=== PATIENT | female | born 1960 | race African-American/Black ===

== ENCOUNTER 2018-12-07 19:10 | Emergency (ER) | payer OTHER ==
[~2018-12-07] VITALS: Ht 167.6 cm; Wt 77.1 kg
[~2018-12-07 19:10] MED LIST: HYDROCODONE-HOMA5 ML PO; IBUPROFEN 800800 M1 PO; NAPROSYN500 MG PO; ZPAK PO
[2018-12-07 19:49] LABS: ABSOLUTE NEUTROPHILS 3.5 thou/uL (1.4-8.2); BASOPHILS 1.5 % (0.0-2.0); EOSINOPHILS 3.6 % (0.0-3.0); HEMATOCRIT 44.8 % (37.0-47.0); HEMOGLOBIN 14.7 gm/dL (12.0-15.0); LYMPHOCYTES 48.4 % (24.0-44.0); MCH 26.4 pg (26.0-34.0); MCHC 32.9 g/dL (28.0-37.0); MCV 80.4 fL (80.0-100.0); MONOCYTES 4.2 % (1.0-8.0); PLATELET COUNT 262 thou/uL (150-400); POLYS 42.3 % (36.0-66.0); RBC 5.57 mil/uL (4.20-5.00); RDW 14.7 % (10.5-14.5); WBC 8.3 thou/uL (4.0-11.0)
[2018-12-07 19:50] LABS: ANION GAP 9 mmol/L (7-16); BUN 14 mg/dL (7-18); CHLORIDE 105 mmol/L (98-107); CO2 28 mmol/L (21-32); GLUCOSE 107 mg/dL (74-106); POTASSIUM 4.3 mmol/L (3.5-5.1); SODIUM 142 mmol/L (136-145)
[2018-12-07 20:00] LABS: ALBUMIN 3.7 g/dL (3.4-5.0); SGOT 40 U/L (15-37); SGPT 33 U/L (30-65); TOTAL BILIRUBIN 0.3 mg/dL (<0.1-1.0); TOTAL PROTEIN 8.2 g/dL (6.4-8.2); TROPONIN-I <0.06 ng/mL (<0.06)
[2018-12-07 20:02] LABS: D-DIMER 0.32 ug/mLFEU (0.19-0.50); PROTIME 9.9 Seconds (9.3-11.4)
[2018-12-07 21:17] VITALS: BP 108/68
--- NOTE | 2018-12-08 10:49 | EKG ---
[address] [address] [place] [address] ELECTROCARDIOGRAM REPORT Name: CAROL YING [facility] [id number] Admission: 12/07/18 Attend Phys: Discharge: 12/07/18 Date of : 58 Report #: [id number] THIS REPORT FOR: //name// [facility] ED Test Date: 2018-12-07 Test Time: 19:28:52 Pat Name: CAROL YING Department: Room: Gender: F Phlebotomy Services Technician: LILIANE : 1960 Requested By: Corinne Cervantes Order Number: [id number] MD: Misael Hanks Measurements Intervals [place] Rate: 93 P: 76 AL: 152 QRS: 18 QRSD: 88 T: 54 QT: 345 QTc: 430 Interpretive Statements Sinus rhythm Possible septal infarct, age indeterminate Compared to ECG 07/31/2018 12:11:01 No significant change was found Electronically Signed On 12-08-2018 10:48:55 SQL BI DEVELOPER by Misael Hanks [email or web address] <ELECTRONICALLY SIGNED> By: Misael Hanks MD, [facility] 12/08/18 1048 1927 27 Misael Hanks MD, FACC /EPI
== END 2018-12-07 21:20 | disposition home or self-care (01) ==
LOC: ER 19:10
PROVIDERS: Physician Assistant
DX: R00.0 Tachycardia, unspecified (principal)

== ENCOUNTER 2019-03-05 22:31 | Emergency (ER) | payer OTHER ==
[~2019-03-05] VITALS: Ht 167.6 cm; Wt 86.2 kg
[2019-03-06] MEDS ORDERED: PEPCID20 MG PO (00:31)
[2019-03-06] MEDS ORDERED: PREDNISONE 20 M20 MG PO (00:31)
[2019-03-06 00:44] VITALS: BP 131/68
== END 2019-03-06 00:45 | disposition home or self-care (01) ==
LOC: ER 22:31
DX: L50.9 Urticaria, unspecified (principal)

== ENCOUNTER 2019-03-24 00:33 | Emergency (ER) | payer OTHER ==
[~2019-03-24] VITALS: Ht 167.6 cm; Wt 84.8 kg
[~2019-03-24 00:33] MED LIST changes: +PEPCID20 MG PO; +PREDNISONE 20 M20 MG PO
[2019-03-24] MEDS ORDERED: EPIPEN0.3 MG/0.1 IM (02:33)
[2019-03-24] MEDS ORDERED: PREDNISONE 20 M20 MG PO (02:35)
[2019-03-24 02:40] VITALS: BP 132/67
== END 2019-03-24 02:45 | disposition home or self-care (01) ==
LOC: ER 00:33
DX: T78.1XXA Other adverse food reactions, not elsewhere classified, initial encounter (principal); X58.XXXA Exposure to other specified factors, initial encounter

== ENCOUNTER 2019-04-16 10:02 | Emergency (ER) | payer OTHER ==
[~2019-04-16] VITALS: Ht 167.6 cm; Wt 83.9 kg
[~2019-04-16 10:02] MED LIST changes: +EPIPEN0.3 MG/0.1 IM
[2019-04-16 10:12] LABS: ABSOLUTE NEUTROPHILS 2.5 thou/uL (1.4-8.2); BASOPHILS 1.2 % (0.0-2.0); EOSINOPHILS 2.3 % (0.0-3.0); HEMATOCRIT 43.1 % (37.0-47.0); HEMOGLOBIN 13.7 gm/dL (12.0-15.0); LYMPHOCYTES 42.3 % (24.0-44.0); MCH 25.5 pg (26.0-34.0); MCHC 31.8 g/dL (28.0-37.0); MCV 80.2 fL (80.0-100.0); MONOCYTES 8.2 % (1.0-8.0); PLATELET COUNT 237 thou/uL (150-400); RBC 5.37 mil/uL (4.20-5.00); RDW 15.2 % (10.5-14.5); WBC 5.5 thou/uL (4.0-11.0)
[2019-04-16 10:19] LABS: ANION GAP 10 mmol/L (7-16); BUN 10 mg/dL (7-18); CALCIUM 9.2 mg/dL (8.5-10.1); CHLORIDE 109 mmol/L (98-107); CO2 24 mmol/L (21-32); GLUCOSE 128 mg/dL (74-106); SODIUM 143 mmol/L (136-145)
[2019-04-16 10:37] LABS: ALBUMIN 3.5 g/dL (3.4-5.0); SGOT 22 U/L (15-37); SGPT 35 U/L (30-65); TOTAL BILIRUBIN 0.3 mg/dL (<0.1-1.0); TOTAL PROTEIN 7.4 g/dL (6.4-8.2); TROPONIN-I <0.06 ng/mL (<0.06)
[2019-04-16] MEDS ORDERED: PROTONIX40 M1 PO (10:39)
[2019-04-16] MEDS ORDERED: VENTOLIN HFA 1818 GM INH (10:40)
[2019-04-16] MEDS ORDERED: ZYRTEC 10 MG TA10 MG PO (10:40)
[2019-04-16] MEDS ORDERED: STIOLTO RESPIMAT4 GM INH (10:41)
[2019-04-16 10:52] LABS: AMP/METHAMP Negative (Negative); BARBITURATES Negative (Negative); BENZODIAZEPINES Negative (Negative); COCAINE Negative (Negative); METHADONE Negative (Negative); OPIATES Negative (Negative); PCP Negative (Negative)
[2019-04-16 10:57] LABS: APTT 23.3 Seconds (24.5-32.8); PROTIME 9.8 Seconds (9.3-11.4)
[2019-04-16] MEDS ORDERED: CARDIZEM CD240 MG PO (11:14)
[2019-04-16 11:27] VITALS: BP 123/67
--- NOTE | 2019-04-17 08:10 | EKG ---
[address] [address] [facility] [place] [address] ELECTROCARDIOGRAM REPORT Name: YINGCAROL Cardoso Room #: DEP [place]#: [id number] ������������������ Admission: 04/16/19 ������������������ Attend Phys: Discharge: 04/16/19 ������������������ Date of : 58 Report #: [id number] ����������������������������������������������������������������� [id number] THIS REPORT FOR: //name// [facility] [place] [place] ED Test Date: 2019-04-16 Test Time: 10:00:22 Pat Name: CAROL YING Department: Room: Gender: F Fraud Analyst: : 1960 Requested By: Jovany Smith Order Number: [id number] MD: Tanvir Olivo Measurements Intervals [place] Rate: 89 P: 76 AR: 150 QRS: 58 QRSD: 80 T: 39 QT: 350 QTc: 426 Interpretive Statements Sinus rhythm Baseline wander in lead(s) V1,V2,V3 Compared to ECG 12/07/2018 19:28:52 Myocardial infarct finding no longer present Electronically Signed On 04-17-2019 8:09:44 CDT by Tanvir Olivo [email or web address] ��������������������������������������������� <ELECTRONICALLY SIGNED> ���������������������������������������� By: Tanvir Olivo MD ��������������������������������������������� 04/17/19 08 1000 Grace Olivo MD /RON
== END 2019-04-16 11:27 | disposition home or self-care (01) ==
LOC: ER 10:02
PROVIDERS: Emergency Medicine
DX: I47.1 Supraventricular tachycardia (principal)

== ENCOUNTER 2020-01-13 21:28 | Emergency (ER) | payer OTHER ==
[~2020-01-13] VITALS: Ht 167.6 cm; Wt 79.4 kg
[~2020-01-13 21:28] MED LIST changes: +CARDIZEM CD240 MG PO; +PROTONIX40 M1 PO; +STIOLTO RESPIMAT4 GM INH; +VENTOLIN HFA 1818 GM INH; +ZYRTEC 10 MG TA10 MG PO
[2020-01-13] MEDS ORDERED: DERMACINRX5000 UNIT PO (22:21)
[2020-01-13 22:33] LABS: ABSOLUTE NEUTROPHILS 3.5 thou/uL (1.4-8.2); BASOPHILS 1.2 % (0.0-2.0); EOSINOPHILS 4.1 % (0.0-3.0); HEMATOCRIT 45.7 % (37.0-47.0); HEMOGLOBIN 14.4 gm/dL (12.0-15.0); LYMPHOCYTES 43.4 % (24.0-44.0); MCH 25.7 pg (26.0-34.0); MCHC 31.4 g/dL (28.0-37.0); MCV 81.8 fL (80.0-100.0); MONOCYTES 8.2 % (1.0-8.0); PLATELET COUNT 225 thou/uL (150-400); POLYS 43.1 % (36.0-66.0); RBC 5.59 mil/uL (4.20-5.00); RDW 14.6 % (10.5-14.5); WBC 8.2 thou/uL (4.0-11.0)
[2020-01-13 22:39] LABS: ANION GAP 11 mmol/L (7-16); BUN 16 mg/dL (7-18); CALCIUM 9.6 mg/dL (8.5-10.1); CHLORIDE 102 mmol/L (98-107); CO2 28 mmol/L (21-32); GLUCOSE 136 mg/dL (74-106); POTASSIUM 4.3 mmol/L (3.5-5.1); SODIUM 141 mmol/L (136-145)
[2020-01-13 22:47] LABS: TROPONIN-I <0.06 ng/mL (<0.06)
[2020-01-13 23:37] VITALS: BP 131/63
--- NOTE | 2020-01-14 08:10 | EKG ---
[facility] [place] [address] ELECTROCARDIOGRAM REPORT Name: CAROL YING Room #: DEP [facility]#: [id number] Admission: 01/13/20 Attend Phys: Discharge: 01/13/20 Date of : 58 Report #: [id number] THIS REPORT FOR: cc: GEMINI - No family physician/PCP FAM - No family physician/PCP Tanvir lOivo MD ~ THIS REPORT FOR: //name// [facility] ED Test Date: 2020-01-13 Test Time: 21:32:09 Pat Name: CAROL YING Department: Room: Gender: F Histotechnologist Supervisor: [facility] : 1960 Requested By: Adalid Acosta Order Number: [id number] MD: Tanvir Olivo Measurements Intervals [place] Rate: 68 P: 67 [place]: 162 QRS: 8 QRSD: 91 T: 45 QT: 412 QTc: 439 Interpretive Statements Sinus rhythm Minimal ST elevation, anterior leads Baseline wander in lead(s) V1 Compared to ECG 04/16/2019 10:00:22 ST (T wave) deviation now present Electronically Signed On 01-14-2020 8:09:30 LIBRARY CIRCULATION DEPARTMENT CHIEF by Tanvir Olivo [email or web address] <ELECTRONICALLY SIGNED> By: Tanvir Olivo MD 01/14/20808 31 31 Tanvir Olivo MD /EPI
== END 2020-01-13 23:42 | disposition home or self-care (01) ==
LOC: ER 21:28
PROVIDERS: Emergency Medicine
DX: R07.89 Other chest pain (principal); E78.5 Hyperlipidemia, unspecified; K21.9 Gastro-esophageal reflux disease without esophagitis